=== PATIENT | male | born 1955 | race Caucasian/White ===

== ENCOUNTER → 2020-08-20 | Outpatient (CLI) | payer OTHER ==
[~2020-08-20] MED LIST: ASPIRIN325 PO; EFFIENT10 MG PO; LIPITOR40 MG PO; LISINOPRIL10 MG PO; METFORMIN HCL500 M3 PO; METOPROLOL SUCC25 M1 PO; PROAIR HFA8.5 GM INH; TORSEMIDE20 MG PO; VITAMIN D21250 MC1 PO
== END ==
LOC: SJCVCIMAG 10:14
PROVIDERS: ATTEND Internal Medicine
DX: R94.39 Abnormal result of other cardiovascular function study (principal); R53.83 Other fatigue; E11.9 Type 2 diabetes mellitus without complications; E78.5 Hyperlipidemia, unspecified; Z86.16 Personal history of COVID-19; Z87.891 Personal history of nicotine dependence

== ENCOUNTER 2020-08-28 06:34 | Observation (INO) | payer OTHER ==
[~2020-08-28] VITALS: Ht 180.3 cm; Wt 127.9 kg
[2020-08-28 07:10] VITALS: BP 121/77
[2020-08-28] MEDS ORDERED: PROAIR HFA8.5 GM INH (07:17)
[2020-08-28] MEDS ORDERED: LIPITOR40 MG PO (07:18)
[2020-08-28] MEDS ORDERED: LISINOPRIL10 MG PO (07:19)
[2020-08-28] MEDS ORDERED: METFORMIN HCL500 M3 PO (07:20)
[2020-08-28] MEDS ORDERED: TORSEMIDE20 MG PO (07:21)
[2020-08-28] MEDS ORDERED: VITAMIN D21250 MC1 PO (07:22)
--- NOTE | 2020-08-28 10:00 | CATHLAB ---
[facility] [place] [address] INVASIVE PROCEDURE REPORT Name: ALEX OREILLY Room #: REG [facility].#: [id number] Admission: 08/28/20 Attend Phys: Alex Abernathy MD, Discharge: Date of : 59 Report #: [id number] THIS REPORT FOR: cc: BRANDON PA MD, OSSAMA MD Lundgren, Craig H. MD [facility] ~ APPROVED REPORT Study performed: 08/28/2020 07:39:24 Patient Details The patient is a 65 year-old male Event Personnel Alex Abernathy Sign Maintenance, Arnel Bass RTR Monitor, Yordan Carrington RTR Scrub, Jazmine Aquino RN manager forensic Performed Art Access - R femoral artery* Left Heart Cath w/or w/o Coronaries [id number] [facility] Place w/wo Plasty Single CIRC [id number] 74395 Initial Mod Sed Same Phys/QHP Gr5y 272592 54123 Mod Sed Same Phys/QHP Ea 906713 Hemostasis w/ Mynx Indication Positive stress test, Chest pain Procedure Narrative The patient was brought electively to the Cardiac Catheterization Laboratory and was prepped and draped in a sterile manner. The Right Groin^ was infiltrated with 1% Lidocaine subcutaneous anesthesia. A PINNACLE 6FR Sheath #[id number] sheath was inserted into the RFA^. Coronary angiography was performed using coronary diagnostic catheters. The right coronary system was accessed and visualized with a JR4 catheter. The left coronary system was accessed and visualized with a JL4 catheter. The left ventricle was accessed and visualized with a PIGTAIL catheter. Left ventricular/Aortic Valve gradient assessed via catheter pullback. Left ventriculogram was performed in 30 degree projection. Closure device was deployed with a 6 Fr MYNXGRIP 6/7F #[id number]. The patient tolerated the procedure well and there were no complications associated with the procedure. There was no hematoma. Intraoperative Conscious Sedation [facility] [address] [place] [address] INVASIVE PROCEDURE REPORT Name: ALEX OREILLY Room [facility]: [id number] Admission: 08/28/20 Attend Phys: Alex Abernathy, Discharge: Date of : 59 Report #: [id number] Sedation start time: 757 Case end Time: 905 Fentanyl 50 mcg Versed 1 mg Fluoro Time: 7.30 minutes Dose: DAP 41571.10 cGycm2 2101 mGy Contrast Type and Amount: Visipaque 245 ml Coronary Angiography The patient's coronary anatomy is left dominant. Diagnostic Cath Left Main Normal left main LAD Mild variable 30-40% proximal LAD plaquing Circumflex Dominant circumflex with 85-90% proximal stenosis OM1 Large OM1 with 60% ostial stenosis L PDA Normal posterior descending Right Coronary Small nondominant right coronary, angiographically normal RPLV Normal posterior lateral branch Ramus Normal large ramus branch Left Ventriculography The left ventricle is normal in size with normal contractility. The left ventricular ejection fraction is estimated to be 60-65%. Left ventricular wall motion abnormalities are not present. There is no mitral insufficiency. Hemodynamics The aortic pressure is 118/68 mmHg with a mean of 91 mmHg. The left ventricular pressure is 117/5 mmHg with a mean of mmHg. The left ventricular end diastolic pressure is 16 mmHg. There was no gradient across the aortic valve upon pullback. PCI Technique Lesion Anticoagulation was achieved with Heparin, Integrilin. Patient was preloaded with Effient. Percutaneous coronary intervention was performed on the proximal circumflex artery segment. The lesion stenosis prior to intervention was 90% with JOHNSON 3 flow. A LAUNCHER 6FR EBU 3.5 #[id number] Guide Catheter was used to engage the left main ostium. A Luge Wire .014 x 182CM #[id number] Interventional Guidewire was used to cross the lesion. BALLOON DILATION A Balloon catheter Euphora RX 2.5 x 12 #[id number] was inserted and [facility] [address] [place] [address] INVASIVE PROCEDURE REPORT Name: ALEX OREILLY Room #: REG Angel#: [id number] Admission: 08/28/20 Attend Phys: Alex Abernathy, Discharge: Date of : 59 Report #: [id number] inflated up to 10.00atm for 31seconds. STENT DEPLOYMENT A drug-eluting stent RESOLUTE LAILA RX 3.0 X 12 #[id number] was inserted and inflated up to 16.00atm for 28seconds. POST STENT DEPLOYMENT BALLOON DILATION A Balloon catheter TREK NC RX 3.0 X 12 #[id number] was inserted and inflated up to 22.00atm for 38seconds. Final angiography reveals 0 % stenosis with JOHNSON 3 flow. Conclusion 1. Normal global and regional left ventricular systolic function. EF 65% 2. Normal left main 3. Mild to moderate 30-40% proximal LAD plaquing 4. 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 60% ostial OM1 stenosis, this will be treated medically, followed closely 6. Small, nondominant and angiographically normal right coronary Recommendations Cardiac Rehabilitation Referral [facility] <ELECTRONICALLY SIGNED> By: Alex Abernathy MD, FACC 08/28/20 1000 1000 1000 Alex Abernathy MD, FACC /INF
--- NOTE | 2020-08-28 12:35 | NUR ---
PT SITS UP IN BED TO EAT LUNCH. BEDREST IS OVER. NO VOICED COMPLAINTS.
--- NOTE | 2020-08-28 12:52 | EKG ---
[address] [address] ELECTROCARDIOGRAM REPORT Name: ALEX OREILLY [facility] [id number] Admission: 08/28/20 Attend Phys: Alex Abernathy MD, Discharge: Date of : 59 Report #: [id number] [facility] Test Date: 2020-08-28 Test Time: 09:30:32 Pat Name: ALEX OREILLY Department: Room: Gender: Grader Operator: FAHAD : 1955 Requested By: Alex Abernathy Order Number: [id number] MD: Hill Karimi Measurements Intervals [place] Rate: 55 P: 23 NH: 176 QRS: 20 QRSD: 91 T: 9 QT: 417 QTc: 399 Interpretive Statements Sinus rhythm No previous ECG available for comparison Electronically Signed On 08-28-2020 12:52:42 FLARE [employer] by Hill Karimi [email or web address] <ELECTRONICALLY SIGNED> By: Hill Karimi MD, [facility] 08/28/20 1252 0930 9 Hill Karimi MD, FACC /EPI
[2020-08-28] MEDS ORDERED: ASPIRIN325 PO (12:54)
[2020-08-28] MEDS ORDERED: METOPROLOL SUCC25 M1 PO (12:54)
[2020-08-28] MEDS ORDERED: EFFIENT10 MG PO (12:54)
[2020-08-28 17:40] VITALS: BP 133/72
[2020-08-28 17:55] VITALS: BP 125/73
[2020-08-28 18:10] VITALS: BP 148/97
[2020-08-28 19:39] VITALS: BP 140/74
[2020-08-29 04:48] VITALS: BP 142/71
[2020-08-29 04:54] LABS: HEMATOCRIT 40.3 % (42.0-52.0); HEMOGLOBIN 13.3 gm/dL (14.0-18.0); MCHC 33.1 g/dL (28.0-37.0); MCV 93.8 fL (80.0-100.0); RBC 4.3 mil/uL (4.50-6.00); RDW 12.8 % (10.5-14.5); WBC 7.7 thou/uL (4.0-11.0)
[2020-08-29 05:26] LABS: ALBUMIN 3.3 g/dL (3.4-5.0); ANION GAP 11 mmol/L (7-16); BUN 17 mg/dL (7-18); CALCIUM 8.8 mg/dL (8.5-10.1); CHLORIDE 105 mmol/L (98-107); CO2 23 mmol/L (21-32); CREATININE 1.4 mg/dL (0.7-1.3); GLUCOSE 106 mg/dL (74-106); POTASSIUM 4.4 mmol/L (3.5-5.1); SGOT 20 U/L (15-37); SGPT 40 U/L (30-65); SODIUM 139 mmol/L (136-145); TOTAL BILIRUBIN 0.3 mg/dL (0.2-1.0); TOTAL PROTEIN 6.8 g/dL (6.4-8.2); TROPONIN-I <0.06 ng/mL (<0.06)
--- NOTE | 2020-08-29 07:17 | EKG ---
[place] [address] [facility] [place] [address] ELECTROCARDIOGRAM REPORT Name: ALEX OREILLY Room #: 206-P 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 : 1955 Requested By: Alex Abernathy Order Number: [id number] MD: Hill Karimi Measurements Intervals [place] Rate: 75 P: 39 NE: 165 QRS: -1 QRSD: 90 T: 10 QT: 387 QTc: 433 Interpretive Statements Sinus rhythm Probable left atrial enlargement Low voltage, precordial leads Compared to ECG 08/28/2020 09:30:32 Low QRS voltage now present Electronically Signed On 08-29-2020 7:17:48 [employer] by Hill Karimi [email or web address] <ELECTRONICALLY SIGNED> By: Hill Karimi MD, [facility] 08/29/20716 0 0 Hill Karimi MD, FACC /EPI
[2020-08-29 07:22] VITALS: BP 124/68
--- NOTE | 2020-08-29 07:40 | NUR ---
PT SLEPT MOST THE NIGHT. A&OX4. SR ON THE MONITOR. R GROIN SITE CDI, HEMATOMA. NO COMPLAINTS OF PAIN, DISTRESS, OR SOA. PT UP AD MICHELE. ASSESSMENTS CHARTED. PROGRESSING TOWARDS DISCHARGE. CONTINUING TO ASSESS ACCORDING TO POC.
--- NOTE | 2020-08-29 08:04 | D ---
[facility] [place] [address] DISCHARGE SUMMARY Name: ALEX OREILLY Room #: 206-P [facility] M.R.#: [id number] Admission: 08/28/20 Attend Phys: Alex Abernathy MD, Discharge: Date of : 59 Report #: [id number] THIS REPORT FOR: cc: BRANDON PA MD, OSSAMA MD Lundgren,Alex Dhaliwal MD FACC ~ DISCHARGE DIAGNOSES: 1. Unstable angina. 2. Severe circumflex disease stented with a 3.0 x 12 mm Resolute medicated stent; normal ejection fraction. 3. Diabetes. 4. Dyslipidemia. 5. Recent COVID-19 infection. 6. Diastolic heart failure. HISTORY OF PRESENT ILLNESS: For the complete details of the history of present illness, see dictated history and physical. Briefly, the patient is a 65-year-old with a history of dyslipidemia, diabetes, diastolic heart failure and recent chest pain. This all seemed to start following an acute COVID-19 infection for which he was hospitalized for 1 month from 03/26 to 04/03. It was during this hospitalization that he was found to be diabetic. Due to progressive chest discomfort, he was admitted for coronary angiography and further evaluation. HOSPITAL COURSE: The patient underwent coronary angiography. The full details of this can be found under separate heading and dictation. In summary, left ventricular systolic function was found to be normal. There is mild to moderate proximal LAD plaquing of 30-40%. Severe proximal circumflex disease was noted for which he underwent stenting with a 3.0 x 12 mm Resolute medicated stent. The circumflex was dominant. The right coronary was small, nondominant and angiographically normal. His post-procedural course was largely uneventful. He was treated with heparin, Integrilin, aspirin and Effient in the periprocedural setting. He was ambulating with excellent groin hemostasis at the time of discharge. DISCHARGE MEDICATIONS: Include Effient 10 mg daily, aspirin 162 mg daily, atorvastatin 40 mg daily, Glyxambi 25/5 one tablet daily, Zestril 10 mg daily, metformin 500 mg daily, torsemide 40 mg daily, Toprol 25mg daily. Discharge medicines were reconciled. DISCHARGE DIET: Low fat, low cholesterol, carb-controlled diet, salt restriction, reinforced. DISCHARGE ACTIVITY: As instructed post-catheterization. Discharge arrangements were made for outpatient cardiac rehabilitation. [address] [address] DISCHARGE SUMMARY Name: ALEX OREILLY Room #: 206-P [facility] M.Oneil#: [id number] Admission: 08/28/20 Attend Phys: Alex Abernathy MD, Discharge: Date of : 59 Report #: [id number] DISCHARGE FOLLOWUP: With myself in 1 month. Follow up with Dr. Chang as directed. DISCHARGE CONDITION: Stable and improved. <ELECTRONICALLY SIGNED> By: Alex Abernathy MD, [facility] 08/29/20 0804 1351 1600 Alex Abernathy MD, FACC /nt
[2020-08-29 09:11] VITALS: BP 124/68
--- NOTE | 2020-08-29 10:21 | NUR ---
ASSUMED CARE PT SHIFT CHANGE. ASSESSMENT CHARTED.MEDS GIVEN CHARTED.VSS. R GROIN SITE CDI NO HEMATOMA. DC ORDERS ACKNOWLEDGED AND IMPLEMENTED DISCUSSED PAPERWORK WITH PT COMMUNUCATING UNDERSTANDING. IV REMOVED. TELE REMOVED. PT LEFT UNIT WITH ALL BELONGINGS.
== END 2020-08-29 10:00 | disposition home or self-care (01) ==
LOC: CATH 06:34 → 2N 17:31
PROVIDERS: ADMIT Internal Medicine; ATTEND Internal Medicine
DX: I20.0 Unstable angina (principal); E11.9 Type 2 diabetes mellitus without complications; E78.5 Hyperlipidemia, unspecified; I50.30 Unspecified diastolic (congestive) heart failure; Z20.828 Contact with and (suspected) exposure to other viral communicable diseases

== ENCOUNTER → 2021-05-23 | Outpatient (CLI) | payer OTHER | LOC: SJCVCIMAG 11:34 | PROVIDERS: ATTEND Internal Medicine | DX: I65.23 Occlusion and stenosis of bilateral carotid arteries (principal); E11.9 Type 2 diabetes mellitus without complications; E78.5 Hyperlipidemia, unspecified; Z87.891 Personal history of nicotine dependence; Z72.89 Other problems related to lifestyle; Z79.82 Long term (current) use of aspirin; Z79.84 Long term (current) use of oral hypoglycemic drugs; Z79.899 Other long term (current) drug therapy ==